=== PATIENT | male | born 1985 ===

== ENCOUNTER 2017-06-15 18:05 | Inpatient (IN) | payer MEDICAID ==
[2017-06-15] MEDS ORDERED: Vancomycin(*) 1,000 MG in NS 0.9% 250 ML* 250 ML IVPB ONE (19:26)
[2017-06-15] MEDS ORDERED: NS 0.9% 1000 ML* 1,000 ML IV ONE (19:26)
[2017-06-15] MEDS ORDERED: Ketorolac INJ* 30 MG/ML 1 ML VIAL IV PUSH ONE (19:27)
[2017-06-15] MEDS ORDERED: HYDROmorphone INJ* 2 MG/ML CARPUJECT SYRINGE IV SLOW PU ONE (21:01)
[2017-06-15] MEDS ORDERED: Metoclopramide IV* 5 MG/ML 2 ML VIAL IV SLOW PU ONE (21:01)
[2017-06-15 21:13] LABS: EGFR Non-African American 129.9 (>60)
[2017-06-15 21:41] LABS: Hematocrit 40 % (42-52); Hemoglobin 13.6 g/dl (14.0-18.0); Mean Corpuscular HGB Conc 34 g/dl (31-36); Mean Corpuscular Hemoglobin 29 pg (27-31); Mean Corpuscular Volume 86 fL (80-94); Red Blood Count 4.64 10^6/ul (4.0-5.4); Red Cell Distribution Width 15 % (10.5-15); White Blood Count 5.4 10^3/ul (3.5-10.8)
[2017-06-15] MEDS ORDERED: Nicotine Inhaler* 10 MG AMP INH PRN (21:42)
[2017-06-15] MEDS: Mouth Piece, Nicotine* 1 EACH CARTRIDGE INH PRN (21:51)
[2017-06-15 21:56] LABS: ABS Basophils 0 10^3/ul (0-0.2); ABS Eosinophils 0.1 10^3/ul (0-0.6); ABS Lymphocytes 1.6 10^3/ul (1.0-4.8); ABS Monocytes 0.6 10^3/ul (0-0.8); ABS Neutrophils 3.1 10^3/ul (1.5-7.7); ABS Nucleated RBC 0 10^3/ul; Eosinophil % 2.6 % (0-6); Lymphocyte % 29.1 % (25-47); Nucleated Red Blood Cells % 0.5
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
[2017-06-15] MEDS ORDERED: Ondansetron INJ* 2 MG/ML VIAL IV PRN (23:12)
[2017-06-15] MEDS ORDERED: Morphine INJ* 4 MG/ML 1 ML SYRINGE (NEW SYRINGE VERSION) IV PRN (23:12)
[2017-06-15] MEDS ORDERED: NS 0.9% 1000 ML* 1,000 ML IV SCH (23:15)
[2017-06-15] MEDS ORDERED: Iodixanol* (CONTRAST) 320 MG/ML 100 ML SDV IV ONE (23:22)
[2017-06-15] MEDS ORDERED: Vancomycin(*) 0 MG in NS 0.9% 250 ML* 250 ML IVPB SCH (23:45)
[2017-06-16] MEDS ORDERED: Vancomycin per Pharmacy* NOTE FOLLOW UP PRN (00:43)
[2017-06-16] MEDS: Gabapentin CAP(*) 400 MG PO SCH ×5 (01:01→20:26)
[2017-06-16] MEDS: Ibuprofen TAB* 600 MG PO PRN ×4 (01:02→20:25)
[2017-06-16] MEDS: Nicotine Inhaler* 10 MG AMP INH PRN ×8 (01:02→22:20)
[2017-06-16] MEDS: QUEtiapine TAB* 100 MG PO SCH ×2 (01:02→20:26)
[2017-06-16] MEDS: Morphine INJ* 4 MG/ML 1 ML CARPUJECT IV PRN ×2 (01:09→05:25)
[2017-06-16] MEDS: Acetaminophen TAB* 325 MG PO PRN ×4 (04:19→22:24)
[2017-06-16] MEDS: Vancomycin(*) 1,250 MG in NS 0.9% 250 ML* 250 ML IVPB SCH ×2 (05:26→14:07)
[2017-06-16 05:51] LABS: Urine Appearance Clear; Urine Blood Negative (Negative); Urine Color Yellow; Urine Ketones Negative (Negative); Urine Protein Negative (Negative); Urine Specific Gravity 1.025 (1.010-1.030); Urine Urobilinogen Negative (Negative)
[2017-06-16 06:16] LABS: Hematocrit 34 % (42-52); Hemoglobin 11.8 g/dl (14.0-18.0); Mean Corpuscular HGB Conc 34 g/dl (31-36); Mean Corpuscular Hemoglobin 29 pg (27-31); Mean Corpuscular Volume 86 fL (80-94); Mean Platelet Volume 9 um3 (7.4-10.4); Platelet Count 82 10^3/ul (150-450); Red Blood Count 4.02 10^6/ul (4.0-5.4); Red Cell Distribution Width 15 % (10.5-15); White Blood Count 3.4 10^3/ul (3.5-10.8)
--- NOTE | 2017-06-16 07:39 | RAD ---
HISTORY: Facial cellulitis, evaluate for abscess COMPARISONS: CT of the face to December 28, 2011 TECHNIQUE: Multiple contiguous axial CT scans were obtained of the neck without intravenous contrast, with coronal and sagittal multiplanar reformations. FINDINGS: Evaluation is limited by lack of intravenous contrast. This limits evaluation of solid organs and vasculature decreases sensitivity for detection of abscess. BRAIN AND ORBITS: The visualized brain and orbits are normal. PARANASAL SINUSES: The visualized paranasal sinuses are clear. SALIVARY GLANDS: The parotid glands, submandibular glands, sublingual glands are normal. NASAL CAVITY/NASOPHARYNX: The nasal cavity and nasopharynx are normal. ORAL CAVITY/OROPHARYNX: The oral cavity is obscured by streak artifact from dental amalgam. The visualized oral cavity and oropharynx are unremarkable. LARYNGEAL APPARATUS/HYPOPHARYNX: The laryngeal apparatus and hypopharynx are normal. UPPER AIRWAY/UPPER ESOPHAGUS: The visualized upper airway and esophagus are normal. LUNG APICES: The lung apices are clear. THYROID GLAND: The thyroid gland is normal. LYMPH NODES: There is no lymphadenopathy by size criteria. There are small, subcentimeter short axis, level 1A and B and level 2 lymph nodes on the left. VASCULATURE: The vasculature is unremarkable. BONES AND SOFT TISSUES: There is stranding of the superficial and deep subcutaneous fat with thickening of the platysma fascia along the left lower face and neck. There is a small amount of free fluid deep to the platysma fascia and the masseteric space. There is no appreciable loculated fluid collection. OTHER: None. IMPRESSION: INFLAMMATORY CHANGE OF THE LEFT FACE, CONSISTENT WITH CELLULITIS , WITHOUT APPRECIABLE LOCULATED FLUID COLLECTION TO SUGGEST ABSCESS.
[2017-06-16] MEDS: Sertraline* 100 MG TAB PO SCH (08:00)
[2017-06-16] MEDS: Multivitamins/Minerals TAB PO SCH (08:00)
[2017-06-16] MEDS: Nicotine PATCH 21 MG/24 HR* PATCH TRANSDERM SCH (08:01)
[2017-06-16] MEDS: QUEtiapine TAB* 25 MG PO SCH (08:01)
[2017-06-16] MEDS ORDERED: Buprenorphine/Naloxone 8-2 MG SL TAB* 1 TAB SL SCH (09:00)
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
[2017-06-16] MEDS ORDERED: Buprenorphine/Naloxone 8-2 MG SL TAB* 1 TAB PO ONE (11:37)
[2017-06-16] MEDS: Clindamycin CAP* 150 MG PO SCH (20:26)
[2017-06-16] MEDS ORDERED: Vancomycin Trough Check NOTE FOLLOW UP ONE (20:30)
[2017-06-16] MEDS ORDERED: Nicotine Patch Removal NOTE FOLLOW UP SCH (21:00)
[2017-06-17] MEDS: Nicotine Inhaler* 10 MG AMP INH PRN ×6 (00:29→15:03)
[2017-06-17] MEDS: Ibuprofen TAB* 600 MG PO PRN ×2 (04:54→13:01)
[2017-06-17] MEDS: Gabapentin CAP(*) 400 MG PO SCH ×2 (08:06→13:01)
[2017-06-17] MEDS: Clindamycin CAP* 150 MG PO SCH ×2 (08:06→13:01)
[2017-06-17] MEDS: QUEtiapine TAB* 25 MG PO SCH (08:06)
[2017-06-17] MEDS: Multivitamins/Minerals TAB PO SCH (08:06)
[2017-06-17] MEDS: Sertraline* 100 MG TAB PO SCH (08:06)
[2017-06-17] MEDS: Acetaminophen TAB* 325 MG PO PRN (08:07)
[2017-06-17] MEDS: Nicotine PATCH 21 MG/24 HR* PATCH TRANSDERM SCH (08:07)
[2017-06-17] MEDS ORDERED: Buprenorphine/Naloxone 8-2 MG SL TAB* 1 TAB SL SCH (09:00)
[2017-06-17] MEDS: Mouth Piece, Nicotine* 1 EACH CARTRIDGE INH PRN (10:30)
[2017-06-17 11:59] VITALS: BP 101/54
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
== END 2017-06-17 15:30 | disposition home or self-care (01) | DRG 383 ==
LOC: ED 18:05 → MEDTELE 23:12 → OBSVTOIN 06-16 11:38
PROVIDERS: ADMIT Hospitalist; ATTEND Internal Medicine
PROC: 05HP33Z Insertion of Infusion Device into Right External Jugular Vein, Percutaneous Approach (ICD-10-PCS; principal; 2017-06-16)
DX: L03.211 Cellulitis of face (principal); F11.20 Opioid dependence, uncomplicated; B95.62 Methicillin resistant Staphylococcus aureus infection as the cause of diseases classified elsewhere; F17.210 Nicotine dependence, cigarettes, uncomplicated; E66.9 Obesity, unspecified; E11.9 Type 2 diabetes mellitus without complications; M27.2 Inflammatory conditions of jaws; F41.9 Anxiety disorder, unspecified; G89.29 Other chronic pain; F32.9 Major depressive disorder, single episode, unspecified; I10 Essential (primary) hypertension; J45.909 Unspecified asthma, uncomplicated; K21.9 Gastro-esophageal reflux disease without esophagitis; K58.9 Irritable bowel syndrome, unspecified; M19.90 Unspecified osteoarthritis, unspecified site; G43.909 Migraine, unspecified, not intractable, without status migrainosus; F90.9 Attention-deficit hyperactivity disorder, unspecified type; Z91.5 Personal history of self-harm; Z86.19 Personal history of other infectious and parasitic diseases; Z87.828 Personal history of other (healed) physical injury and trauma; Z98.1 Arthrodesis status; Z88.0 Allergy status to penicillin; Z82.49 Family history of ischemic heart disease and other diseases of the circulatory system; Z68.34 Body mass index [BMI] 34.0-34.9, adult; Z88.1 Allergy status to other antibiotic agents; Z87.01 Personal history of pneumonia (recurrent); Z56.0 Unemployment, unspecified
CPT/HCPCS: 36415; 70490; 80053; 81003; 81015; 85025; 85027; 86140; 86703; 87040; 87070; 87077; 87086; 87186; 87205; 87640; 87641; 99285; 99406; A9270-GY; G0378; J1170; J1885; J2270; J2765; J3370